=== PATIENT | male | born 1990 | race African-American/Black ===

== ENCOUNTER 2018-10-25 00:54 | Emergency (ER) | payer MEDICAID ==
[~2018-10-25] VITALS: Ht 177.8 cm; Wt 73.0 kg
[2018-10-25 02:53] VITALS: BP 112/52
== END 2018-10-25 03:27 | disposition left against medical advice (07) ==
LOC: ER 01:27
DX: R56.9 Unspecified convulsions (principal); Z53.21 Procedure and treatment not carried out due to patient leaving prior to being seen by health care provider
CPT/HCPCS: 82962